=== PATIENT | male | born 1995 | race Caucasian/White ===

== ENCOUNTER 2022-12-02 13:06 | Emergency (ER) | payer SELFPAY, OTHER ==
[2022-12-02] MEDS ORDERED: Ketorolac Tromethamine 30 MG/ML VIAL ONE (14:28)
[2022-12-02] MEDS ORDERED: Acetaminophen 500 MG TAB ONE (15:36)
== END 2022-12-02 15:43 | disposition home or self-care (01) ==
LOC: CSHERS 13:06
DX: S20.20XA Contusion of thorax, unspecified, initial encounter (principal); S00.03XA Contusion of scalp, initial encounter; F17.210 Nicotine dependence, cigarettes, uncomplicated; V89.2XXA Person injured in unspecified motor-vehicle accident, traffic, initial encounter
CPT/HCPCS: 71250; 93005; 96372; J1885